=== PATIENT | male | born 1955 | race Caucasian/White ===

== ENCOUNTER 2021-08-03 00:36 | Day surgery (SDC) | payer BC, SELFPAY ==
[2021-07-19 10:13] VITALS: BMI 34.5
[2021-08-03 06:38] VITALS: BP 135/89; PULSE 64; RESP 18; TEMP 36.7; O2SAT 99; BMI 34.7
[2021-08-03] MEDS: LACTATED RINGERS 1,000 ML 150 ML IV CONT (06:54)
--- NOTE | 2021-08-03 07:18 | WPDGICN ---
Assessment and Plan Assessment and plan (1) Encounter for screening colonoscopy: Code(s): Z12.11 - Encounter for screening for malignant neoplasm of colon Status: Acute Assessment and Plan: Patient presents for screening colonoscopy. He appears to be at average risk for colon polyps. Further recommendations will be given after endoscopy. GI Consult Note Consult date/time: 08/03/21 07:18 HPI: Jason Gama is a 65 year old male Presents for screening colonoscopy. Patient's current weight appetite bowel movements are normal. He denies abdominal pain. He has had no bleeding. Family history is noncontributory. Patient's last screening exam 10 years ago was unremarkable. Review of Systems Review of Systems: All systems reviewed & are unremarkable except as noted in HPI and below PMFSH Family History Family History Mother Asthma Family history of diabetes mellitus in first degree relative Family history of hypercholesterolemia Family history of arthritis Family history of hearing loss Father Family history of malignant neoplasm Patient's father is Family history of alcoholism Family history of lung cancer Family history of primary malignant neoplasm of liver Grandparent Family history of arthritis Other Family history of congenital heart disease Social History Social History Smoking status: Never smoker Alcohol intake: current Alcohol use details: 2x monthly Substance use: never Substance use type: does not use Living arrangements: with family Spiritual care concerns: No Meds Home Medications and Allergies Home Medications Medication Instructions Recorded Confirmed Type multivitamin 1 tablet PO DAILY 02/08/19 08/03/21 History omega 3-apl-ipd-fish oil 1,000 mg 1 cap PO DAILY 02/08/19 08/03/21 History (120 mg-180 mg) capsule rosuvastatin 10 mg tablet 10 mg PO DAILY #90 tablet 05/24/21 08/03/21 Rx Allergies Allergy/AdvReac Type Severity Reaction Status Date / Time Penicillins Allergy Mild Swelling Verified 08/03/21 06:46 Vital Signs Vital Signs - 24 hr 08/03/21 06:38 Temperature 98.0 F Pulse Rate 64 Respiratory Rate 18 Blood Pressure 135/89 Pulse Oximetry 99 Exam Narrative: Physical exam reveals patient to be alert. Vital signs stable. HEENT exam is unremarkable. Patient is anicteric. Lungs are clear to auscultation and percussion. Heart is without murmur or extra sounds. Abdominal exam bowel sounds are present soft nontender with no organomegaly. Digital external rectal exam is normal.
--- NOTE | 2021-08-03 07:19 | WPDANESEPPF ---
Anes - Initial Pre Proc Eval Procedure: Operation Date: 08/03/21 07:30 Proposed Procedures p Screening Colonoscopy - James Archibald MD Date/Time: 08/03/21 07:19 Surgeon: James Archibald MD Pre Op Diagnosis: neoplasm screening Patient Data Age: 65 Gender: M Height: 1.7 m Weight: 100.4 kg Last Vital Signs Temp 98.0 F 08/03/21 06:38 Pulse 64 08/03/21 06:38 Resp 18 08/03/21 06:38 BP 135/89 08/03/21 06:38 Pulse Ox 99 08/03/21 06:38 Allergies Allergy/AdvReac Type Severity Reaction Status Date / Time Penicillins Allergy Mild Swelling Verified 08/03/21 06:46 Home Medications Medication Instructions Recorded Confirmed Type multivitamin 1 tablet PO DAILY 02/08/19 08/03/21 History omega 8-xzr-xlk-fish oil 1,000 mg 1 cap PO DAILY 02/08/19 08/03/21 History (120 mg-180 mg) capsule rosuvastatin 10 mg tablet 10 mg PO DAILY #90 tablet 05/24/21 08/03/21 Rx Patient hx anesthesia problems: none Family hx anesthesia problems: none Results Review: All pre-operative results and documents have been reviewed as part of the pre-operative evaluation. [facility] Family History Family History Mother Asthma Family history of diabetes mellitus in first degree relative Family history of hypercholesterolemia Family history of arthritis Family history of hearing loss Father Family history of malignant neoplasm Patient's father is Family history of alcoholism Family history of lung cancer Family history of primary malignant neoplasm of liver Grandparent Family history of arthritis Other Family history of congenital heart disease Social History Social History Smoking status: Never smoker Alcohol intake: current Alcohol use details: 2x monthly Substance use: never Substance use type: does not use Living arrangements: with family Spiritual care concerns: No Anes - Eval Final PreProcedure Day of Procedure 08/03/21 07:19 Patient weight: obese Heart: regular rate and rhythm Lungs: clear to auscultation Airway: Mallampati scale class III Neurological: alert and oriented Last oral intake: >/= 8 hours ASA classification: II Emergent: no Anesthetic plan: proceed Anesthesia type and monitoring: general GIVS and standard monitoring Results Review: All pre-operative results and documents have been reviewed as part of the pre-operative evaluation. Informed Consent: The patient's anesthetic plan and its attendant risks and benefits were discussed with the patient/family/POA. Questions were solicited and answers provided to the satisfaction of the patient/family/POA.
[2021-08-03 07:42] VITALS: BP 116/68; PULSE 67; RESP 16; O2SAT 98
[2021-08-03 07:52] VITALS: BP 118/81; PULSE 57; RESP 15; O2SAT 99
[2021-08-03 08:02] VITALS: BP 126/83; PULSE 54; RESP 13; O2SAT 99
== END 2021-08-03 08:10 | disposition home or self-care (01) ==
PROVIDERS: PCP Internal Medicine; Visit Provider Internal Medicine Gastroenterology
PROC: 0DJD8ZZ Inspection of Lower Intestinal Tract, Via Natural or Artificial Opening Endoscopic (ICD-10-PCS; CPT 45378; principal; 2021-08-03 07:30)
DX: Z12.11 Encounter for screening for malignant neoplasm of colon (principal); K64.8 Other hemorrhoids; E66.9 Obesity, unspecified; Z68.34 Body mass index [BMI] 34.0-34.9, adult
CPT/HCPCS: 45378; J2704; J7120